=== PATIENT | male | born 2000 | race Caucasian/White ===

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

== ENCOUNTER 2020-12-16 16:30 | Emergency (ER) | payer OTHER, MEDICAID ==
[~2020-12-16] VITALS: Ht 175.3 cm; Wt 71.1 kg
[2020-12-16 16:47] VITALS: BP 167/93
--- NOTE | 2020-12-16 16:55 | ED EENT ---
History of Present Illness General Chief Complaint: Nasal Problems Stated Complaint: WC,NOSE PAIN Source: patient History of Present Illness Date Seen by Provider: Dec 16, 2020 Time Seen by Provider: 16:54 Initial Comments 20-year-old male presenting from [facility] due to a work comp injury from Monday, December 14. 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 He had some nasal pain and swelling. He did not have any loss of consciousness. There is no bleeding. He continued to have some mild swelling and feels like the septum was shifted slightly. When he told someone at work today evaluate the had him come in for evaluation from a work- comp standpoint. He states he has had prior injury to his nose but never had fractures. Timing/Duration: abrupt Severity: mild Location: nose Prearrival Treatment: no prearrival treatment Associated Symptoms: No change in hearing, No cough, No drooling, No ear drainage; facial pain/swelling (mild to septum and upper lip area); No fever, No malaise, No nasal congestion/drainage, No poor fluid intake, No poor solids intake, No sinus infection, No sore throat, No tooth pain, No voice change Allergies and Home Medications Allergies Coded Allergies: No Known Drug Allergies (Unverified , 08/29/18) Patient Home Medication List Home Medication List Reviewed: Yes Review of Systems Review of Systems Constitutional: No chills, No fever Eyes: No Symptoms Reported Ears: No Symptoms Reported Nose: see HPI; denies clots, denies congestion, denies epistaxis, denies bloody discharge, denies clear discharge, denies purulent discharge, denies serosanguinous discharge; previous injury Mouth: no symptoms reported Throat: no symptoms reported Respiratory: no symptoms reported Cardiovascular: no symptoms reported Gastrointestinal: no symptoms reported Musculoskeletal: no symptoms reported Skin: other (mild superficial abrasion to septum) Neurological: No Symptoms Reported Past Hemwdms-Thbrzm-Rgynno Hx Seasonal Allergies Seasonal Allergies: No Past Medical History Surgeries: No Respiratory: No Cardiac: No Neurological: No Genitourinary: No Gastrointestinal: No Musculoskeletal: No Endocrine: No HEENT: No Cancer: No Psychosocial: No Integumentary: No Blood Disorders: No Physical Exam Vital Signs Vital Signs - First Documented 12/16/20 16:47 Temp 36.9 Pulse 73 Resp 16 B/P (MAP) 167/93 (117) Pulse Ox 98 O2 Delivery Room Air Height, Weight, BMI Height: 5'9.00" Weight: 145lbs. oz. 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 No septal hematoma or fracture seen when using otoscope and speculum. Progress Note #2: Progress Note No acute fracture or process seen on the CT scan. Counseled on results and advised to use ice alternating with heat for pain and swelling. Check back with the work-comp clinic and if not improving or worsening then may need to see ENT Diagnostic Imaging Diagonstic Imaging: CT Plain Films/CT/US/NM/MRI: facial bones Comments NAME: MICHELA MUNOZ [facility] REC#: [id number] PT STATUS: REG ER : 2000 PHYSICIAN: SHANTELL PALACIOS MD ADMIT DATE: 12/16/20/ER FS Draft Date of Exam:12/16/20 CT MAXILLOFACIAL WO PROCEDURE: CT maxillofacial without contrast. TECHNIQUE: Multiple contiguous axial images were obtained through the facial bones without the use of intravenous contrast. Auto Exposure Controls were utilized during the CT exam to meet ALARA standards for radiation dose reduction. INDICATION: Trauma to the face with nasal swelling and pain. COMPARISON: CT head from 03/01/2019. FINDINGS: The zygomatic arches are intact. The pterygoid plates are intact. The mandible is intact and normal in alignment. No fracture is seen. The maxilla appears intact. There is no fluid level in the maxillary sinuses. There is mild mucosal thickening in the left maxillary sinus. The globes are intact. The orbits appear intact. There is no postseptal edema. No acute fracture is seen. IMPRESSION: 1. No facial fracture is seen. Dictated on workstation # [id number] Dict: 12/16/20 1722 Trans: 12/16/20 1726 [id number] Interpreted by: MELI JACQUES MD Electronically signed by: Reviewed: Reviewed by Me Departure Impression Primary Impression: Contusion of nose, initial encounter Additional Impression: Nasal swelling Disposition: 01 HOME, SELF-CARE Condition: Stable Departure-Patient Inst. Decision time for Depature: 17:40 Referrals: JACKIE ISSA MD (PCP/Family) Primary Care Physician Patient Instructions: Minor Contusion ED Add. Discharge Instructions: Use ice alternating with heat to help with swelling and inflammation to nose. Check back [facility] Work Comp clinic and if continue concerns/issues then may need to see ENT such as Dr. Vera for additional evaluation. All discharge instructions reviewed with patient and/or family. Voiced understanding. Work/School Note: Work Release Form Date Seen in the Emergency Department: Dec 16, 2020 Return to Work: Dec 16, 2020 Restrictions: Follow Up With [facility] Other Restrictions Listed Below: May return to work today. Follow up [facility] continued concerns SHANTELL PALACIOS MD Dec 16, 2020 16:55
--- NOTE | 2020-12-16 17:27 | Diagnostic Imaging Report ---
PROCEDURE: CT maxillofacial without contrast. TECHNIQUE: Multiple contiguous axial images were obtained through the facial bones without the use of intravenous contrast. Auto Exposure Controls were utilized during the CT exam to meet ALARA standards for radiation dose reduction. INDICATION: Trauma to the face with nasal swelling and pain. COMPARISON: CT head from 03/01/2019. FINDINGS: The zygomatic arches are intact. The pterygoid plates are intact. The mandible is intact and normal in alignment. No fracture is seen. The maxilla appears intact. There is no fluid level in the maxillary sinuses. There is mild mucosal thickening in the left maxillary sinus. The globes are intact. The orbits appear intact. There is no postseptal edema. No acute fracture is seen. IMPRESSION: 1. No facial fracture is seen. Dictated by: Dictated on workstation # [id number]
== END 2020-12-16 17:45 | disposition home or self-care (01) ==
LOC: EDUNIT# 16:30 → ER FS 16:32
DX: S00.33XA Contusion of nose, initial encounter (principal); W20.8XXA Other cause of strike by thrown, projected or falling object, initial encounter
CPT/HCPCS: 70486